=== PATIENT | male | born 1965 | race American Indian/Alaskan Native ===

== ENCOUNTER 2017-03-19 13:02 | Emergency (ER) | payer SELFPAY ==
[2017-03-19 15:12] VITALS: BP 126/83
== END 2017-03-19 15:05 | disposition left against medical advice (07) ==
LOC: ED 13:02
DX: M54.9 Dorsalgia, unspecified (principal); Z53.21 Procedure and treatment not carried out due to patient leaving prior to being seen by health care provider

== ENCOUNTER 2020-10-15 08:33 | Outpatient (CLI) | payer MEDICAID ==
--- NOTE | 2020-10-15 09:35 | XRay Report ---
LEFT KNEE, 2 views HISTORY: Pain. COMPARISON: None. TECHNIQUE: 4 views of the left knee obtained. FINDINGS: Bones: No fracture or dislocation. Enthesopathy along the superior aspect of the patella. Joint spaces: Mild medial joint space narrowing and osteoarthritic change. Soft tissues: Moderate-sized suprapatellar joint effusion. Additional findings: None. IMPRESSION: Left knee without evidence of acute osseous injury. Mild medial joint space narrowing and osteoarthritic change. Moderate-sized suprapatellar joint effusion. Signer Name: Addy Montero MD Signed: 10/15/2020 9:31 AM Workstation Name: [id number]
--- NOTE | 2020-10-15 09:37 | XRay Report ---
XR spine lumbosacral 4+V INDICATION / CLINICAL INFORMATION: LOW BACK PAIN. COMPARISON: None available. FINDINGS: BONES/JOINT(S): There are transitional features of the lumbosacral junction with partial sacralizatio n of presumed L5. No significant malalignment. Vertebral body heights are intact. No evidence of frac ture. Moderate disc space height loss at the presumed L4-L5 level. Severe lower lumbar facet arthropa thy. SI joints are intact. PARASPINAL SOFT TISSUES:No significant abnormality. ADDITIONAL FINDINGS: None. Signer Name: Sergey Barnett MD Signed: 10/15/2020 9:33 AM Workstation Name: [id number]
== END 2020-10-15 08:34 | disposition home or self-care (01) ==
LOC: XRAY 08:33
PROVIDERS: ATTEND Orthopaedic Surgery
DX: S32.059A Unspecified fracture of fifth lumbar vertebra, initial encounter for closed fracture (principal); M47.816 Spondylosis without myelopathy or radiculopathy, lumbar region; M17.12 Unilateral primary osteoarthritis, left knee; M25.462 Effusion, left knee; X58.XXXA Exposure to other specified factors, initial encounter; Y93.89 Activity, other specified; Y92.89 Other specified places as the place of occurrence of the external cause; Y99.8 Other external cause status
CPT/HCPCS: 72110